=== PATIENT | female | born 1950 | race Caucasian/White ===

== ENCOUNTER → 2016-12-02 | Outpatient (CLI) | payer OTHER ==
--- NOTE | 2016-12-03 12:30 | MAMMOGRAPHY REPORT ---
BILATERAL DIGITAL SCREENING MAMMOGRAM WITH CAD: 12/02/2016 CLINICAL HISTORY: Routine screening. Patient has no complaints. TECHNIQUE: Current study was also evaluated with a Computer Aided Detection (CAD) system. Bilateral CC and MLO and left X CCL views were obtained. COMPARISON: Comparison is made to exams dated: 05/27/2015 mammogram, 02/21/2014 mammogram, 04/06/2012 mammogram, 12/24/2010 mammogram, 07/24/2009 mammogram - [facility], and 02/08/2008. BREAST COMPOSITION: There are scattered areas of fibroglandular density in both breasts. FINDINGS: No suspicious masses, calcifications, or areas of architectural distortion are noted in ei ther breast. There has been no significant interval change compared to prior exams. Bilateral benign -appearing calcifications are again noted. A small nodular asymmetry on the left XCCL view laterally effaces on the cc view and is felt to represent benign fibroglandular tissue. IMPRESSION: ACR BI-RADS CATEGORY 2: BENIGN There is no mammographic evidence of malignancy. A 1 year screening mammogram is recommended. The pa tient will receive written notification of the results. Approximately 10% of breast cancers are not detected with mammography. A negative mammographic report should not delay biopsy if a clinically suggestive mass is present. Beverly Olvera M.D. /:12/02/2016 16:12:02 [employer] Operator: Ophelia DUPONT(Tati)(M)(BD), [facility] letter sent: Normal 1/2 BI-RADS Code: ACR BI-RADS Category 2: Benign
== END | disposition home or self-care (01) ==
LOC: C.MAMM 10:22
PROVIDERS: ATTEND Family Medicine
DX: Z12.31 Encounter for screening mammogram for malignant neoplasm of breast (principal)